=== PATIENT | male | born 1965 | race Caucasian/White ===

== ENCOUNTER → 2017-02-16 | Outpatient (CLI) | payer OTHER | END | disposition home or self-care (01) | LOC: KCIC MRI 15:46 | DX: M48.061 Spinal stenosis, lumbar region without neurogenic claudication (principal); M51.36 Other intervertebral disc degeneration, lumbar region; M54.16 Radiculopathy, lumbar region; M79.605 Pain in left leg; M79.604 Pain in right leg; M25.78 Osteophyte, vertebrae; R60.9 Edema, unspecified | CPT/HCPCS: 72148 ==

== ENCOUNTER → 2019-09-18 | Outpatient (CLI) | payer MEDICARE, OTHER ==
--- NOTE | 2019-09-18 17:18 | KCIC ---
KNEE LEFT 3V DATE: 09/18/2019 2:45 PM INDICATION: CHRONIC LEFT KNEE PAIN COMPARISON: None. FINDINGS: There is no evidence of acute fracture or dislocation. Moderate lateral compartment degenerative changes with bulky osteophytes. Mild medial and patellofemoral compartment degenerative changes. Patella federico. IMPRESSION: Tricompartmental degenerative changes, worst and moderate moderate in the lateral compartment. Electronically signed by: Ollie Jones MD (09/18/2019 5:15 PM) [id number]
--- NOTE | 2019-09-18 17:30 | KCIC ---
EXAM: MRI left shoulder DATE: 09/18/2019 2:45 PM COMPARISON: None INDICATION: Left shoulder pain-suspected rotator cuff tear. TECHNIQUE: Multiplanar, multisequence MRI of the left shoulder was performed without contrast. FINDINGS: Moderate left shoulder joint effusion. Changes of distal acromial resection. Subacromial-subdeltoid bursal fluid from full-thickness rotator cuff tear described below. Full-thickness, full width tear of the supraspinatus tendon and full-thickness, subtotal width tear of the infraspinatus tendon measures approximately 4 cm in AP dimension, with retraction lateral to the acromion. Suture anchors are seen within the greater tuberosity from prior rotator cuff repair. Moderate fatty atrophy of the infraspinatus muscle belly. Remainder of the rotator cuff is normal in signal and morphology. No full-thickness cartilage defect is identified. Left glenohumeral joint osteophytes are seen. Moderate increased signal and thickening of the intra-articular and extra articular long head biceps tendon consistent with tendinosis. No discrete labral tear is seen. No evidence for fracture or osteonecrosis. IMPRESSION: 1. Changes of prior rotator cuff repair, now with full-thickness, full width tear of the supraspinatus and full-thickness, subtotal with tear of the infraspinatus tendon measures approximately 4 cm in AP dimension. 2. Moderate fatty atrophy of the infraspinatus muscle belly. 3. Biceps tendinosis. Electronically signed by: Elias Ny MD (09/18/2019 5:27 PM) [id number]
--- NOTE | 2019-09-19 08:35 | KCIC ---
EXAM: MRI LEFT KNEE DATE: 09/18/2019 3:30 PM CLINICAL INDICATION: Chronic left knee pain, particularly laterally. COMPARISON: None. TECHNIQUE: Multiplanar, multisequence MRI of the left knee was performed without contrast. FINDINGS: Moderate left knee joint effusion. Small joint bodies are seen. Trace Henderson's cyst. ACL and PCL are grossly intact. The MCL, fibular collateral ligament, biceps femoris and IT band are intact. Focal thickening of the patellar tendon at the patellar attachment consistent with patellar tendinosis. Small foci of ossification within the proximal patellar tendon. Edema within the superolateral Hoffa's fat pad may be seen with Hoffa's impingement syndrome. Quadriceps tendon is grossly intact. Borderline lateral patellar tracking. Mild chondral thinning at the patellar apex. Regions of full-thickness cartilage defects within the lateral compartment with subchondral edema and cystic change. Intermittent chondral thinning medial compartment. Tricompartmental osteophytes are seen. In addition degenerative changes are seen at the proximal tibiofibular joint with subchondral edema and cystic change. Medial meniscus: No discrete meniscal tear is seen. However small cystic foci are seen posterior to the posterior horn-root medial meniscus suggesting small para meniscal cysts or arising from the joint line. Lateral meniscus: Diffuse blunting of the posterior horn body as well as anterior horn on the lateral meniscus consistent with complex tear with predominantly radial components. IMPRESSION: 1. Severe right knee joint osteoarthritis with lateral compartment chondral effacement, diffuse bilateral meniscal degeneration/maceration and tricompartmental osteophytes. 2. Proximal tibiofibular joint osteoarthritis with subchondral edema and cystic change. 3. Edema within the superolateral Hoffa's fat pad may be seen with Hoffa's impingement. 4. Thickening of the proximal patellar tendon likely from prior tendinosis or injury. 5. Small cystic foci posterior to the posterior horn-root medial meniscus may represent meniscal cysts or cysts originating from the joint capsule. Electronically signed by: Elias Ny MD (09/19/2019 8:32 AM) [id number]
== END | disposition home or self-care (01) ==
LOC: KCIC MRI 14:08
PROVIDERS: ATTEND Orthopaedic Surgery Sports Medicine
DX: M17.0 Bilateral primary osteoarthritis of knee (principal); M25.462 Effusion, left knee; M25.412 Effusion, left shoulder; M75.102 Unspecified rotator cuff tear or rupture of left shoulder, not specified as traumatic; G89.29 Other chronic pain
CPT/HCPCS: 73221; 73562; 73721